=== PATIENT | male | born 1970 | race Two or more races ===

== ENCOUNTER 2023-11-23 10:32 | Emergency (ER) | payer OTHER ==
[~2023-11-23] VITALS: Ht 170.2 cm; Wt 74.8 kg
[2023-11-23] MEDS ORDERED: CRESTOR10 MG PO (10:49)
[2023-11-23] MEDS ORDERED: ZOLPIDEM TART1.75 MG SL (10:50)
[2023-11-23] MEDS ORDERED: METAXALONE800 MG PO (12:56)
[2023-11-23] MEDS ORDERED: ADVIL DUAL ACT1 EACH PO (12:56)
== END 2023-11-23 13:12 | disposition home or self-care (01) ==
LOC: ER 10:33
DX: S13.4XXA Sprain of ligaments of cervical spine, initial encounter (principal); V43.62XA Car passenger injured in collision with other type car in traffic accident, initial encounter; Y93.89 Activity, other specified; Y92.413 State road as the place of occurrence of the external cause